=== PATIENT | male | born 1960 | race Caucasian/White ===

== ENCOUNTER 2023-07-18 15:19 | Emergency (ER) | payer OTHER, SELFPAY ==
[2023-07-18] VITALS (17 sets, daily range): BP systolic 104–154; BP diastolic 82–103; PULSE 73–102; RESP 10–19; TEMP 36.8–36.9; O2SAT 94–100
--- NOTE | ~2023-07-18 | CT_ITS ---
EXAMINATION: CTA chest PE protocol DATE: 07/18/2023 20:42 INDICATION: dyspnea TECHNIQUE: Computed tomography angiography (CTA) of the chest was performed with 100 mL Omnipaque-350 intravenous contrast timed to evaluate the pulmonary arteries. Coronal maximum intensity projection 3D-reconstructions were created by the technologist. The dose-length product (DLP) was 639.48 mGy-cm. Automated exposure control and iterative reconstruction technique were employed. COMPARISON: X-ray chest, same date. FINDINGS: Lung parenchyma and airways: Mild dependent atelectasis. Left lower lobe scar/atelectasis. Pleura: Unremarkable. Thoracic inlet, axillae and chest wall: Thyroid goiter.. Thoracic aorta: Normal. Mediastinum: Normal. Heart and pericardium: Normal. Coronary artery calcifications: Absent. Upper abdomen: Multiple liver cysts. Steatosis.. Bones: No acute osseous finding. Pulmonary arteries: Study quality: Adequate. No pulmonary emboli detected. IMPRESSION: No CT evidence of acute pulmonary embolus. No acute intrathoracic process detected. Reviewed, dictated and finalized at location K. IMPRESSION: No CT evidence of acute pulmonary embolus. No acute intrathoracic process detec ivy.
--- NOTE | ~2023-07-18 | XR_ITS ---
EXAMINATION: XR chest 2V Exam Date/Time: 07/18/2023 16:40 CDT HISTORY: Sob Comparison: 02/07/2011. RESULT: Lines, tubes, and devices: None. Lungs and pleura: Clear. Cardiomediastinal silhouette: Stable. Other: No acute osseous or upper abdominal finding. IMPRESSION: No acute cardiopulmonary process. Reviewed, dictated and finalized at location K.
--- NOTE | 2023-07-18 15:23 | ECG_ITS ---
Measurements Intervals [place] Rate: 98 P: 52 LA: 161 QRS: 16 QRSD: 95 T: 39 QT: 348 QTc: 446 Interpretive Statements SINUS RHYTHM INCOMPLETE RIGHT BUNDLE BRANCH BLOCK [90+ ms QRS DURATION, TERMINAL R IN V1/V2, 40+ ms S IN I/aVL/V4/V5/V6] NO PREVIOUS ECG AVAILABLE FOR COMPARISON Electronically Signed On 07-19-2023 19:45:20 CDT by Jenn Worthy M.D.
--- NOTE | 2023-07-18 15:35 | ED.GENADULT ---
HPI - General Adult General Chief complaint: Shortness of Breath/Dyspnea <Maribell John January,N - Last Filed: 07/18/23 15:37> Stated complaint: SOB/not feeling good <Maribell John January, RE DYE HAND - Last Filed: 07/18/23 15:37> Time Seen by Provider: 07/18/23 19:12 <Maribell John January,N - Last Filed: 07/18/23 15:37> History of Present Illness HPI narrative: Dash Alexander is a 63 y/o male who presents wt complaints of having increased SOB that started about a month ago that has been getting worse over the past 4-5 days. He denies chest pain but reports of some palpitations. No hx of VT / Htn/ hld/ cardiac stents. <Maribell John January, - Last Filed: 07/18/23 15:37> Related Data Allergies/adverse reactions: Allergies Allergy/AdvReac Type Severity Reaction Status Date / Time No Known Drug Allergies Allergy Mild Verified 02/20/17 19:04 <Maribell John January, - Last Filed: 07/18/23 15:37> Review of Systems Review of Systems: A 10 system review of systems was completed on the patient and is negative except for what is stated in the HPI. Nursing and ancillary documentation was reviewed. <Han Amos MD - Last Filed: 07/18/23 21:37> Exam Narrative: GENERAL: Well-appearing, well-nourished, and in no acute distress. HEAD: Normocephalic, atraumatic. EYES: PERRLA and EOMI. ENT: Nares clear, no rhinorrhea or epistaxis. Mucous membranes moist. Cerumen impaction of the left ear canal NECK: Supple. CHEST: Clear to auscultation. No respiratory distress. HEART: Regular rate and rhythm. No murmur heard. Normal peripheral pulses. ABDOMEN: Soft, nontender, nondistended, normal active bowel sounds. EXTREMITIES: Normal range of motion. No edema. SKIN: Warm, dry, no rash. NEURO: No focal deficits. Alert and oriented x3. PSYCH: Normal mood and affect. <Han Amos MD - Last Filed: 07/18/23 21:37> Course Vital Signs Vital signs: Vital Signs Temperature 36.8 C 07/18/23 15:26 Pulse Rate 102 H 07/18/23 15:26 Respiratory Rate 18 07/18/23 15:26 Blood Pressure 104/82 07/18/23 15:26 Pulse Oximetry 98 07/18/23 15:26 Oxygen Delivery Room Air 07/18/23 15:26 Temperature 36.9 C 07/18/23 18:03 Pulse Rate 73 07/18/23 20:15 Respiratory Rate 15 07/18/23 20:15 Blood Pressure 142/92 H 07/18/23 20:15 Pulse Oximetry 98 07/18/23 20:15 Oxygen Delivery Room Air 07/18/23 15:26 <Maribell Soto, RE DYE HAND - Last Filed: 07/18/23 15:37> Vital Signs Temperature 36.8 C 07/18/23 15:26 Pulse Rate 102 H 07/18/23 15:26 Respiratory Rate 18 07/18/23 15:26 Blood Pressure 104/82 07/18/23 15:26 Pulse Oximetry 98 07/18/23 15:26 Oxygen Delivery Room Air 07/18/23 15:26 Temperature 36.9 C 07/18/23 18:03 Pulse Rate 73 07/18/23 20:15 Respiratory Rate 15 07/18/23 20:15 Blood Pressure 142/92 H 07/18/23 20:15 Pulse Oximetry 98 07/18/23 20:15 Oxygen Delivery Room Air 07/18/23 15:26 <Han Amos MD - Last Filed: 07/18/23 21:37> Medical Decision Making MDM Narrative Medical decision making narrative: Differential diagnosis includes cerumen impaction, CHF, ACS White count was 7.3 hemoglobin was 13.4 electrolytes are within normal limits BNP was 106 troponin is less than 0.012 CTA chest showed no evidence of pulmonary embolism no evidence of pneumonia and no edema. CT of the patient's ear was irrigated and now the tympanic membrane is visible and the patient had to be irrigated <aHn Amos MD - Last Filed: 07/18/23 21:37> Vital Signs Vital Signs: Vital Signs Temperature 36.8 C 07/18/23 15:26 Pulse Rate 102 H 07/18/23 15:26 Respiratory Rate 18 07/18/23 15:26 Blood Pressure 104/82 07/18/23 15:26 Pulse Oximetry 98 07/18/23 15:26 Oxygen Delivery Room Air 07/18/23 15:26 Temperature 36.9 C 07/18/23 18:03 Pulse Rate 73 07/18/23 20:15 Respiratory Rate 15
[2023-07-18 17:08] LABS: Basophils Percent Auto 0.4 % (0.2-1.2); Eosinophils Absolute Auto 0.1 K/mm3 (0-0.3); Eosinophils Percent Auto 0.8 % (0-4.4); Hematocrit 38.8 % (42.0-52.0); Hemoglobin 13.4 g/dL (14.0-18.0); Immature Granulocyte Absolute 0.02 K/mm3 (0.00-0.031); Immature Granulocyte Percent A 0.3 % (0-0.5); Lymphocytes Absolute Auto 2.16 K/mm3 (0.9-3.2); Lymphocytes Percent Auto 29.5 % (18.3-44.2); Mean Corpuscular HGB Conc 34.5 g/dl (32-36); Mean Corpuscular Hemoglobin 30.7 pg (26-34); Mean Corpuscular Volume 88.8 fl (80-100); Mean Platelet Volume 8.5 fl (7.4-10.4); Monocytes Absolute Auto 0.6 K/mm3 (0.1-0.6); Monocytes Percent Auto 7.7 % (2.6-8.5); Neutrophils Absolute Auto 4.5 K/mm3 (1.3-6.7); Neutrophils Percent Auto 61.3 % (45.5-73.1); Platelet Count Result 205 k/mm3 (150-375); Red Blood Count 4.37 M/mm3 (4.6-6.20); Red Cell Distribution Width 12.1 % (11.5-14.5); White Blood Count 7.3 K/mm3 (4.5-10.0)
[2023-07-18 17:21] LABS: Alanine Aminotransferase 27 U/L (6-50); Albumin Level 4.3 g/dL (3.5-5.1); Alkaline Phosphatase 51 U/L (38-126); Anion Gap 6 mmol/L (8-16); Aspartate Amino Transferase 26 U/L (17-59); Bilirubin,Total 0.5 mg/dL (0.2-1.3); Blood Urea Nitrogen 21 mg/dL (9-20); Calcium 9.1 mg/dL (8.4-10.2); Carbon Dioxide 27 mmol/L (22-30); Chloride 104 mmol/L (98-107); Estimated CRCL calculation 76 ml/min; Estimated Glomerular Filt Rate > 60; Glucose 114 mg/dL (65-110); Magnesium 1.8 mg/dL (1.6-2.3); Potassium 3.9 mmol/L (3.4-5.0); Sodium 137 mmol/L (137-145)
[2023-07-18 17:32] LABS: NT Pro B Type Natriuretic Pept 106 pg/mL (19.9-100); Troponin I < 0.012 ng/mL (0.000-0.034)
--- NOTE | 2023-07-18 20:20 | PC.NURSE ---
Pt's left ear irrigated with 500ml sterile saline with good outcome. ERP notified for recheck. PT tolerated well.
== END 2023-07-18 22:05 | disposition home or self-care (01) ==
PROVIDERS: Emergency Medicine; Nurse Practitioner Family; Emergency Provider Emergency Medicine; PCP Internal Medicine Infectious Disease
DX: R06.00 Dyspnea, unspecified (principal); H61.22 Impacted cerumen, left ear
CPT/HCPCS: 36415; 69209; 71046; 71275; 80053; 83735; 83880; 84484; 85025; 93005; 99284; Q9967